=== PATIENT | female | born 2000 | race American Indian/Alaskan Native ===

== ENCOUNTER 2021-01-16 19:41 | Emergency (ER) | payer OTHER ==
[2021-01-16 20:06] VITALS: BP 123/81
--- NOTE | 2021-01-16 20:09 | Event Note ---
ED Screening Note Date of service: 01/16/21 Time: 20:08 ED Screening Note: c/o vag bleeding after getting US at ob office today. She is about 7 weeks preg. This initial assessment/diagnostic orders/clinical plan/treatment(s) is/are subject to change based on patients health status, clinical progression and re- assessment by fellow clinical providers in the ED. Further treatment and workup at subsequent clinical providers discretion. Patient/guardian urged not to elope from the ED as their condition may be serious if not clinically assessed and managed. Initial orders include: CBC, CMP, Qant, rhogam, UA
[2021-01-16 20:45] LABS: Bilirubin,Urine NEG (Negative); Blood,Urine LG (Negative); Color,Urine Red (Yellow); Mucus,Urine 2+ /HPF; Urobilinogen,Urine < 2.0 mg/dL (<2.0)
[2021-01-16 20:46] LABS: Basophils # (Auto) 0.1 K/mm3 (0.0-0.1); Basophils % (Auto) 0.6 % (0.0-1.8); Eosinophils # (Auto) 0.4 K/mm3 (0.0-0.4); Eosinophils % (Auto) 4.4 % (0.0-4.3); Hemoglobin 12.2 gm/dl (10.1-14.3); Lymphocytes # (Auto) 2.5 K/mm3 (1.2-5.4); Lymphocytes % (Auto) 26.2 % (13.4-35.0); Mean Corpuscular HGB Conc 35 % (30-34); Mean Corpuscular Volume 93 fl (79-97); Monocytes # (Auto) 0.6 K/mm3 (0.0-0.8); Monocytes % (Auto) 6.9 % (0.0-7.3); Platelet Count 214 K/mm3 (140-440); Red Blood Count 3.78 M/mm3 (3.65-5.03); Red Cell Distribution Width 12.8 % (13.2-15.2)
[2021-01-16 20:48] LABS: RBC,Urine > 182.0 /HPF (0.0-6.0)
[2021-01-16 21:07] LABS: Alanine Aminotransferase 11 units/L (7-56); Albumin 4.5 g/dL (3.9-5); Blood Urea Nitrogen 7 mg/dL (7-17); Calcium 8.8 mg/dL (8.4-10.2); Hemolysis Index 3
[2021-01-16 21:12] LABS: BUN/Creatinine Ratio 14
[2021-01-16] MEDS ORDERED: ACETAMINOPHEN W/CODEINE 300-30 MG TAB PO ONE (22:08)
--- NOTE | 2021-01-16 22:17 | Emergency Department Report ---
ED Female HPI - General Chief complaint: Vaginal Bleeding Stated complaint: 7WKS PREG/ABD CRAMPING Time Seen by Provider: 01/16/21 20:45 Source: patient Mode of arrival: Ambulatory Limitations: No Limitations - History of Present Illness Initial comments: This is a 20-year-old G1, P0 female followed by [facility] DIP PAINTER who presents to ED today complaining of vaginal bleeding that began this afternoon after she had gotten the ultrasound at [facility] this morning patient states that her appointment was normal she had a normal ultrasound this morning dating her at 6 weeks gestation. Patient states that pelvic cramping began about a few hours to arrival to the ED. Patient denies fever chills nausea vomiting diarrhea, Dizziness lightheadedness MD Complaint: vaginal bleeding - Related Data Previous Rx's Medication Instructions Recorded Last Taken Type Acetaminophen/Codeine [Tylenol 1 tab PO Q6H #10 tab 01/16/21 Unknown Rx /Codeine # 3 tab] Allergies Allergy/AdvReac Type Severity Reaction Status Date / Time No Known Allergies Allergy Unverified 01/16/21 20:42 ED Review of Systems ROS: Stated complaint: 7WKS PREG/ABD CRAMPING Other details as noted in HPI Comment: All other systems reviewed and negative ED Past Medical Hx - Past Medical History Previous Medical History?: No - Surgical History Past Surgical History?: No - Social History Smoking Status: Never Smoker Substance Use Type: None - Medications Home Medications: Home Medications Medication Instructions Recorded Confirmed Last Taken Type Acetaminophen/Codeine [Tylenol 1 tab PO Q6H #10 tab 01/16/21 Unknown Rx /Codeine # 3 tab] ED Physical Exam - General Limitations: No Limitations General appearance: alert, in no apparent distress - Head Head exam: Present: atraumatic, normocephalic - Eye Eye exam: Present: normal appearance - ENT ENT exam: Present: mucous membranes moist - Neck Neck exam: Present: normal inspection - Respiratory Respiratory exam: Present: normal lung sounds bilaterally. Absent: respiratory distress - Cardiovascular Cardiovascular Exam: Present: regular rate, normal rhythm. Absent: systolic murmur, diastolic murmur, rubs, gallop - GI/Abdominal GI/Abdominal exam: Present: soft, normal bowel sounds - Speculum exam: Present: vaginal discharge, vaginal bleeding, tissue (Consistent with content mixed with blood clot.), other. Absent: laceration Bi-manual exam: Present: normal bi-manual exam. Absent: cervical motion tendernes - Extremities Exam Extremities exam: Present: normal inspection - Back Exam Back exam: Present: normal inspection - Neurological Exam Neurological exam: Present: alert, oriented X3 - Psychiatric Psychiatric exam: Present: normal affect, normal mood - Skin Skin exam: Present: warm, dry, intact, normal color. Absent: rash ED Course Vital Signs 01/16/21 20:01 Temperature 98.7 F Pulse Rate 83 Respiratory 18 Rate Blood Pressure 123/81 O2 Sat by Pulse 98 Oximetry ED Medical Decision Making - Lab Data Result diagrams: 01/16/21 20:06 01/16/21 20:06 Laboratory Last Values WBC 9.4 K/mm3 (4.5-11.0) 01/16/21 20: RBC 3.78 M/mm3 (3.65-5.03) 01/16/21 20:06 Hgb 12.2 gm/dl (10.1-14.3) 01/16/21 20:06 Hct 35.0 % (30.3-42.9) 01/16/21 20:06 MCV 93 fl (79-97) 01/16/21 20:06 MCH 32 pg (28-32) 01/16/21 20:06 MCHC 35 % (30-34) H 01/16/21 20:06 RDW 12.8 % (13.2-15.2) L 01/16/21 20:06 Plt Count 214 K/mm3 (140-440) 01/16/21 20:06 Lymph % (Auto) 26.2 % (13.4-35.0) 01/16/21 20:06 [place] % (Auto) 6.9 % (0.0-7.3) 01/16/21 20:06 Eos % (Auto) 4.4 % (0.0-4.3) H 01/16/21 20:06 Baso % (Auto) 0.6 % (0.0-1.8) 01/16/21 20:06 Lymph # (Auto) 2.5 K/mm3 (1.2-5.4) 01/16/21 20:06 [place] # (Auto) 0.6 K/mm3 (0.0-0.8) 01/16/21 20:06 Eos # (Auto) 0.4 K/mm3 (0.0-0.4) 01/16/21 20:06 Baso # (Auto) 0.1 K/mm3 (0.0-0.1) 01/16/21 20:06 Seg Neutrophils % 61.9 % (40.0-70.0) 01/16/21 20:06 Seg Neutrophils # 5.8 K/mm3 (1.8-7.7) 01/16/21 20:06 Sodium 137 mmol/L (137-145) 01/16/21 20:06 Potassium 3.3 mmol/L (3.6-5.0) L 01/16/21 20:06 Chloride 103.8 mmol/L (98-107) 01/16/21 20:06 Carbon Dioxide 24 mmol/L (22-30) 01/16/21 20:06 Anion Gap 13 mmol/L 01/16/21 20:06 BUN 7 mg/dL (7-17) 01/16/21 20:06 Creatinine 0.5 mg/dL (0.6-1.2) L 01/16/21 20:06 Estimated GFR > 60 ml/min 01/16/21 20:06 BUN/Creatinine Ratio 14 % 01/16/21 20:06 Glucose 110 mg/dL (65-100) H 01/16/21 20:06 Calcium 8.8 mg/dL (8.4-10.2) 01/16/21 20:06 Total Bilirubin 0.30 mg/dL (0.1-1.2) 01/16/21 20:06 AST 17 units/L (5-40) 01/16/21 20:06 ALT 11 units/L (7-56) 01/16/21 20:06 Alkaline Phosphatase 33 units/L (35-129) L 01/16/21 20:06 Total Protein 6.8 g/dL (6.3-8.2) 01/16/21 20:06 Albumin 4.5 g/dL (3.9-5) 01/16/21 20:06 Albumin/Globulin Ratio 2.0 % 01/16/21 20:06 HCG, Quant 6413 mIU/mL (0-4) H 01/16/21 20:06 Urine Color Red (Yellow) 01/16/21 Unknown Urine Turbidity Cloudy (Clear) 01/16/21 Unknown Urine pH 5.0 (5.0-7.0) 01/16/21 Unknown Ur Specific [place] 1.020 (1.003-1.030) 01/16/21 Unknown Urine Protein 100 mg/dl mg/dL (Negative) 01/16/21 Unknown Urine Glucose (UA) Neg mg/dL (Negative) 01/16/21 Unknown Urine Ketones 20 mg/dL (Negative) 01/16/21 Unknown Urine Blood Lg (Negative) 01/16/21 Unknown Urine Nitrite Neg (Negative) 01/16/21 Unknown Urine Bilirubin Neg (Negative) 01/16/21 Unknown Urine Urobilinogen < 2.0 mg/dL (<2.0) 01/16/21 Unknown Ur Leukocyte Esterase Neg (Negative) 01/16/21 Unknown Urine WBC (Auto) 29.0 /HPF (0.0-6.0) H 01/16/21 Unknown Urine RBC (Auto) > 182.0 /HPF (0.0-6.0) 01/16/21 Unknown U Epithel Cells (Auto) 10.0 /HPF (0-13.0) 01/16/21 Unknown Urine Mucus 2+ /HPF 01/16/21 Unknown Blood Type A POSITIVE 01/16/21 20:10 Ord Rhogam Gestat Weeks Rh pos WEEKS 01/16/21 20:10 - Medical Decision Making 20-year-old female presents to ED with spontaneous ED course: All labs within normal limits, except for the beta quantitative which looks seems low for presumed gestational age. Discussed with patient to return in 2 days or follow-up with [facility] for quantitative redraw. Vital signs normalized patient is in no acute distress. I discussed with the patient if follow-up with her DIP PAINTER. Patient had ultrasound this morning so ultrasound is not needed at this time. Patient is not having excruciating pelvic pain. I discussed with the patient that he if bleeding worsens or new symptoms develop to return to ED immediately Critical care attestation.: If time is entered above; I have spent that time in minutes in the direct care of this critically ill patient, excluding procedure time. ED Disposition Clinical Impression: Spontaneous Disposition: DC-01 TO HOME OR SELFCARE Is pt being admited?: No Does the pt Need Aspirin: No Condition: Stable Instructions: Miscarriage, [id number] Additional Instructions: Make sure to follow up with the DIP PAINTER at [facility] as discussed. Take all your medications as you've been prescribed. If you have any worsening symptoms or develop new symptoms please return to ED immediately. Prescriptions: Acetaminophen/Codeine [Tylenol /Codeine # 3 tab] 1 tab PO Q6H #10 tab Referrals: JEREMY MOBILE CHALINO VO MD [Primary Care Provider] - 3-5 Days [facility] [Provider Group] - 3-5 Days Forms: Work/School Release Form(ED) Time of Disposition: 22:30
== END 2021-01-16 22:40 | disposition home or self-care (01) ==
LOC: ED 19:41
DX: O03.9 Complete or unspecified spontaneous abortion without complication (principal); Z3A.01 Less than 8 weeks gestation of pregnancy; Z79.899 Other long term (current) drug therapy
CPT/HCPCS: 36415; 80053; 81001; 84702; 85025; 86900; 86901; 87086

== ENCOUNTER 2021-09-17 10:56 | Emergency (ER) | payer OTHER ==
--- NOTE | 2021-09-17 11:26 | Emergency Department Report ---
ED HPI - General Chief complaint: Vaginal Bleeding Stated complaint: 6WK , BROWN DISCHARGE Time Seen by Provider: 09/17/21 11:16 Source: patient Mode of arrival: Ambulatory Limitations: No Limitations - History of Present Illness Initial comments: The patient was evaluated in the emergency department for symptoms described in the history of present illness. He/she was evaluated in the context of the global COVID-19 pandemic, which necessitated consideration that the patient might be at risk for infection with the virus that causes COVID-19. Institutional protocols and algorithms that pertain to the evaluation of patients at risk for COVID-19 are in a state of rapid change based on information released by regulatory bodies including the CDC and federal and state organizations. These policies and algorithms were followed during the patient's care in the emergency department. Please note that these policies, procedures and recommendations changed on a rapid basis. 20-year-old female presents to the emergency room stating she is approximately 6 weeks and has been having brown discharge for the last week. Patient denies any dysuria no urinary frequency urgency. She states that she had lower back cramp. She denies any pain at this time. She states that she is followed by [facility]'s CARBON PASTE MIXER OPERATOR and her first ultrasound is scheduled tomorrow. Patient is 2 para 0 with a history of a miscarriage. She states she had a blood confirmation from back clinic. Complaint: vaginal bleeding Onset/Timin -: week(s) Radiation: suprapubic Severity scale (0 -10): 2 Quality: aching Consistency: intermittent Improves with: none Worsens with: none Associated symptoms: vaginal bleeding (Brown discharge) Vaginal bleeding: light :: Yes Number of weeks : 6 OB History - Current : no complications OB History - Previous Pregnancies: miscarriage Pre-kerline care: followed by OB (First visit tomorrow) - Related Data : 2 Para: 0 (1 miscarriage) Previous Rx's Medication Instructions Recorded Last Taken Type Acetaminophen/Codeine [Tylenol 1 tab PO Q6H #10 tab 01/16/21 Unknown Rx /Codeine # 3 tab] Allergies Allergy/AdvReac Type Severity Reaction Status Date / Time No Known Allergies Allergy Unverified 01/16/21 20:42 ED Review of Systems ROS: Stated complaint: 6WK , BROWN DISCHARGE Other details as noted in HPI Comment: All other systems reviewed and negative ED Past Medical Hx - Past Medical History Previous Medical History?: No - Surgical History Past Surgical History?: Yes Additional Surgical History: wisdom teeth removal - Social History Smoking Status: Never Smoker Substance Use Type: None - Medications Home Medications: Home Medications Medication Instructions Recorded Confirmed Last Taken Type Acetaminophen/Codeine [Tylenol 1 tab PO Q6H #10 tab 01/16/21 Unknown Rx /Codeine # 3 tab] ED Physical Exam - General Limitations: No Limitations General appearance: alert, in no apparent distress - Head Head exam: Present: atraumatic, normocephalic - Eye Eye exam: Present: normal appearance - ENT ENT exam: Present: mucous membranes moist - Neck Neck exam: Present: normal inspection - Respiratory Respiratory exam: Present: normal lung sounds bilaterally. Absent: respiratory distress - Cardiovascular Cardiovascular Exam: Present: regular rate, normal rhythm. Absent: systolic murmur, diastolic murmur, rubs, gallop - GI/Abdominal GI/Abdominal exam: Present: soft, normal bowel sounds - Extremities Exam Extremities exam: Present: normal inspection - Back Exam Back exam: Present: normal inspection - Neurological Exam Neurological exam: Present: alert, oriented X3 - Psychiatric Psychiatric exam: Present: normal affect, normal mood - Skin Skin exam: Present: warm, dry, intact, normal color. Absent: rash ED Course Vital Signs 09/17/21 11:04 Temperature 98.6 F Pulse Rate 77 Respiratory 18 Rate Blood Pressure 116/64 [Right] O2 Sat by Pulse 100 Oximetry ED Medical Decision Making - Lab Data Result diagrams: 09/17/21 11:35 09/17/21 11:35 - Radiology Data Radiology results: report reviewed [address] [address] Ultrasound Report Signed Patient: MARÍA ELENA MALIK MR#: [id number] : 2000 Acct:[id number] Age/Sex: 20 / F ADM Date: 09/17/21 Loc: ED Attending Dr: Ordering Physician: HODA KHAN MD Date of Service: 09/17/21 Procedure(s): US OB transvaginal Accession Number(s): [id number] cc: HODA KHAN MD ULTRASOUND OBSTETRIC REASON FOR EXAM: bleeding TECHNIQUE: Transabdominal and transvaginal ultrasound was performed to evaluate a first trimester . COMPARISON: None available. FINDINGS: FINDINGS: The pole, yolk sac, and gestational sac are normal in appearance. [facility]-rump length: 5 mm. This corresponds with a gestational age of 6 weeks 2 days. heart rate: 125 bpm Perigestational hemorrhage: No evidence of perigestational hemorrhage on the provided images. MATERNAL FINDINGS: The uterus demonstrates otherwise unremarkable sonographic appearance.. The right ovary demonstrates a normal sonographic appearance. The left ovary demonstrates a normal sonographic appearance. Cul-de-sac: There is minimal free fluid in the cul-de-sac, likely physiologic. IMPRESSION: 1. Viable intrauterine . Gestational age is 6 weeks 2 days by ultrasound. Recommend clinical screening and ultrasound follow-up in the second trimester to screen for anomalies. 2. No significant abnormality. 3. Free fluid in the cul-de-sac is likely physiologic. Signer Name: Quang Wang MD Signed: 09/17/2021 12:51 PM Workstation Name: [id number] Transcribed By: MORALES Dictated By: QUANG WANG MD Electronically Authenticated By: QUANG WANG MD Signed Date/Time: 09/17/21 1251 DD/ 1249 TD/TT: - Medical Decision Making 20-year-old female presents to the emergency room stating she is approximately 6 weeks and has been having brown discharge for the last week. Patient denies any dysuria no urinary frequency urgency. She states that she had lower back cramp. She denies any pain at this time. She states that she is followed by [facility]'s CARBON PASTE MIXER OPERATOR and her first ultrasound is scheduled tomorrow. Patient is 2 para 0 with a history of a miscarriage. She states she had a blood confirmation from back clinic. Vaginal bleeding protocol placed. Critical care attestation.: If time is entered above; I have spent that time in minutes in the direct care of this critically ill patient, excluding procedure time. ED Disposition Clinical Impression: Threatened miscarriage in early Qualifiers: Weeks of gestation: less than 8 weeks Qualified Code(s): Z3A.01 - Less than 8 weeks gestation of Disposition: 01 HOME / SELF CARE / HOMELESS Is pt being admited?: No Does the pt Need Aspirin: No Condition: Stable Instructions: Threatened Miscarriage, [id number], First Trimester of , [id number] Additional Instructions: Ultrasound shows you are 6 weeks and 1 day . There is no abnormalities in your urine. ED RhoGam positive which is good. No signs of anemia. Kidney function tests are good. Follow-up with your CARBON PASTE MIXER OPERATOR. Refrain from having sexual intercourse until you follow-up with your OB no foreign objects in the vaginal vault. No heavy exercise and lifting. Tylenol only for pain. Referrals: PRIMARY CARE, [Primary Care Provider] - 3-5 Days Tory Nicolas CARBON PASTE MIXER OPERATOR [Other] - 3-5 Days Time of Disposition: 13:17
--- NOTE | 2021-09-17 11:26 | Event Note ---
Date of service: 09/17/21 Face to Face: For this encounter I have reviewed the PA/STAFFING ACCOUNT MANAGER documentation, treatment plan, medical decision making, and I had face to face time with this patient. Briefly, patient presented secondary to a brown discharge with some bright red blood. She had had some lower abdominal cramping and back cramping as well. The discharge started yesterday after intercourse. She is noticed cis coordinator discoloration when she wipes. Patient is a . She miscarried her first at approximately 6 weeks by dates. She is currently 6 weeks. On exam, patient has no abdominal tenderness. There is no CVA tenderness. She does not appear to be in any distress. Labs and ultrasound will be obtained. RhoGam work-up has been ordered.
[2021-09-17 12:09] LABS: Basophils % (Auto) 0.4 % (0.0-1.8); Eosinophils # (Auto) 0.1 K/mm3 (0.0-0.4); Eosinophils % (Auto) 1.7 % (0.0-4.3); Hematocrit 36.5 % (30.3-42.9); Hemoglobin 12.8 gm/dl (10.1-14.3); Lymphocytes # (Auto) 1.3 K/mm3 (1.2-5.4); Lymphocytes % (Auto) 20.7 % (13.4-35.0); Mean Corpuscular HGB Conc 35 % (30-34); Mean Corpuscular Volume 92 fl (79-97); Monocytes # (Auto) 0.5 K/mm3 (0.0-0.8); Platelet Count 215 K/mm3 (140-440); Red Blood Count 3.96 M/mm3 (3.65-5.03); Red Cell Distribution Width 13.5 % (13.2-15.2)
[2021-09-17 12:35] LABS: Bilirubin,Urine NEG (Negative); Blood,Urine NEG (Negative); Color,Urine Straw (Yellow); Protein,Urine <15 mg/dL mg/dL (Negative); Urobilinogen,Urine < 2.0 mg/dL (<2.0); WBC,Urine < 1.0 /HPF (0.0-6.0)
[2021-09-17 12:40] LABS: Alanine Aminotransferase 19 units/L (7-56); Albumin 4.7 g/dL (3.9-5); Blood Urea Nitrogen 9 mg/dL (7-17); Calcium 8.9 mg/dL (8.4-10.2); Hemolysis Index 0
[2021-09-17 12:47] LABS: BUN/Creatinine Ratio 23
--- NOTE | 2021-09-17 12:55 | Ultrasound Report ---
ULTRASOUND OBSTETRIC REASON FOR EXAM: bleeding TECHNIQUE: Transabdominal and transvaginal ultrasound was performed to evaluate a first trimester pre gnancy. COMPARISON: None available. FINDINGS: FINDINGS: The pole, yolk sac, and gestational sac are normal in appearance. [place]-rump length: 5 mm. This corresponds with a gestational age of 6 weeks 2 days. heart rate: 125 bpm Perigestational hemorrhage: No evidence of perigestational hemorrhage on the provided images. MATERNAL FINDINGS: The uterus demonstrates otherwise unremarkable sonographic appearance.. The right ovary demonstrates a normal sonographic appearance. The left ovary demonstrates a normal sonographic appearance. Cul-de-sac: There is minimal free fluid in the cul-de-sac, likely physiologic. IMPRESSION: 1. Viable intrauterine . Gestational age is 6 weeks 2 days by ultrasound. Recommend clinica l screening and ultrasound follow-up in the second trimester to screen for anomalies. 2. No significant abnormality. 3. Free fluid in the cul-de-sac is likely physiologic. Signer Name: Willis Wang MD Signed: 09/17/2021 12:51 PM Workstation Name: [id number]
[2021-09-17 13:06] LABS: RBC,Urine < 1.0 /HPF (0.0-6.0)
[2021-09-17 13:32] VITALS: BP 113/64
== END 2021-09-17 13:37 | disposition home or self-care (01) ==
LOC: ED 10:56
DX: O20.0 Threatened abortion (principal); Z3A.01 Less than 8 weeks gestation of pregnancy
CPT/HCPCS: 36415; 76801; 76817; 80053; 81001; 84702; 85025; 86900; 86901; 99284

== ENCOUNTER 2022-04-22 17:12 | Outpatient (CLI) | payer OTHER ==
[2022-04-22 17:40] VITALS: BP 117/64
== END 2022-04-22 20:58 | disposition home or self-care (01) ==
LOC: APU 17:12 → TRG 17:12
PROVIDERS: ATTEND Obstetrics & Gynecology
DX: Z34.93 Encounter for supervision of normal pregnancy, unspecified, third trimester (principal); Z3A.37 37 weeks gestation of pregnancy
CPT/HCPCS: 59025; Q0177

== ENCOUNTER 2022-04-23 03:03 | Outpatient (CLI) | payer OTHER ==
[2022-04-23 03:30] VITALS: BP 125/67
[2022-04-23] MEDS ORDERED: LACTATED RINGERS 1,000 ML ONE (03:30)
== END 2022-04-23 04:42 | disposition home or self-care (01) ==
LOC: TRG 03:03 → APU 03:04 → TRG 04:42
PROVIDERS: ATTEND Obstetrics & Gynecology
DX: O46.93 Antepartum hemorrhage, unspecified, third trimester (principal); Z3A.37 37 weeks gestation of pregnancy
CPT/HCPCS: 59025

== ENCOUNTER 2022-04-23 10:33 | Inpatient (IN) | payer OTHER ==
[2022-04-23] MEDS ORDERED: LACTATED RINGERS 1,000 ML ONE (11:11)
[2022-04-23] MEDS ORDERED: LACTATED RINGERS 1,000 ML IV SCH ×2 (11:30→13:00)
[2022-04-23] MEDS ORDERED: BUTORPHANOL 2 MG/1 ML INJ IV PRN ×2 (12:00→12:30)
[2022-04-23] MEDS ORDERED: LIDOCAINE (2%) 20 MG/1 ML VIAL 20 ML MDV INFILTRATI NR (12:03)
[2022-04-23] MEDS ORDERED: miSOPROStol 200 MCG TAB PR PRN (12:03)
[2022-04-23] MEDS ORDERED: METHYLERGONOVINE MALEATE 0.2 MG/ML VIAL IM PRN (12:30)
[2022-04-23] MEDS ORDERED: OXYTOCIN 10 UNIT/1 ML INJ IM PRN (12:30)
[2022-04-23] MEDS ORDERED: ePHEDrine SULFATE 50 MG/1 ML INJ IV PRN (12:30)
[2022-04-23] MEDS ORDERED: ACETAMINOPHEN 325 MG TAB PO PRN (12:30)
[2022-04-23] MEDS ORDERED: CARBOPROST TROMETHAMINE 250 MCG/1 ML INJ IM PRN (12:30)
[2022-04-23] MEDS ORDERED: TERBUTALINE 1 MG/1 ML INJ SUB-Q PRN (12:30)
[2022-04-23 12:38] LABS: Basophils % (Auto) 0.1 % (0.0-1.8); Eosinophils % (Auto) 0.1 % (0.0-4.3); Hematocrit 30.4 % (30.3-42.9); Hemoglobin 10.2 gm/dl (10.1-14.3); Lymphocytes # (Auto) 1.4 K/mm3 (1.2-5.4); Lymphocytes % (Auto) 7.9 % (13.4-35.0); Mean Corpuscular HGB Conc 34 % (30-34); Mean Corpuscular Volume 87 fl (79-97); Monocytes # (Auto) 1.6 K/mm3 (0.0-0.8); Platelet Count 194 K/mm3 (140-440); Red Blood Count 3.51 M/mm3 (3.65-5.03); Red Cell Distribution Width 13.3 % (13.2-15.2)
[2022-04-23] MEDS ORDERED: OXYTOCIN DRIP 30 UNITS/500 ML BAG IV SCH ×2 (13:00→22:22)
[2022-04-23] MEDS ORDERED: LOPERAMIDE 2 MG CAP PO PRN (13:00)
--- NOTE | 2022-04-23 15:50 | History and Physical Report ---
History of Present Illness Date of examination: 04/23/22 Date of admission: 04/23/22 10:34 History of present illness: Patient presents to labor and delivery with complaints of regular contractions overnight. Patient states that it was seen yesterday labor and delivery with cervical exam at 3 cm initial exam by triage nurse patient is now 6 cm. Will admit to labor and delivery for active labor Menstrual History Regularity: regular Menses every: 28 days Duration: 5 LMP: 08/05/2021 LMP reliability: definite LMP character: normal test type: urine test Date: 11/27/2021 BC at conception: none Planned ? no EDC Calculations LMP: 05/12/2022 EDC Confirmation: 05/12/2022 Past History : 2 Elect. Ab: 1 # 1 Delivery date: 01/2021 Delivery type: SAB Past Medical History: Negative Past Surgical History: negative General Comments - FH: Negative for breast, ovarian, colon, uterine, and pancreatic cancers Risk Factors: Smoked Tobacco Use: Never smoker Smokeless Tobacco Use: Never Passive Smoke Exposure: no HIV High Risk Behavior: no Exercise: no Seatbelt Use: 100 % Alcohol Use: no Drug Use: no Past Medical History Anesthesia Complications: negative Anemia: negative Autoimmune Disorder: negative Bleeding Disorder: negative Blood Transfusions: negative Breast Disease: negative Diabetes: negative Heart Disease: negative Hypertension: negative Hepatitis/Liver Disease: negative Kidney Disease/UTI: negative Neurologic/Epilepsy/Migraines: negative Phlebitis/Varicosities: negative Psychiatric: negative Pulmonary Disease/Asthma: negative Thyroid Disease: negative Hospitalizations: negative Surgery (Non-golf club manager): negative GUILHERME Exposure: negative Infertility: negative Uterine Anomaly: negative Uterine Surgery (not C/S): negative Other Gynecologic Problems: negative Family Hx: Negative for breast, ovarian, colon, uterine, and pancreatic cancers Infection History HIV Risk Eval: no Genetic History Congenital Heart Defect: Mom: no Samantha Disease: Mom: no Thalassemia Mom: no Neural Tube Defect Mom: no Down's Syndrome Mom: no Chon-Sachs Mom: no Sickle Cell Disease/Trait Mom: no Hemophilia Mom: no Muscular Dystrophy Mom: no Cystic Fibrosis Mom: no [place] Chorea Mom: no Mental Retardation Mom: no Fragile X Mom: no Other Genetic/Chromosomal Disorder Mom: no Child w/other defect Mom: no Enviromental Exposures Xray Exposure: no Medication, drug, or alcohol use since LMP: no Chemical/Other Exposure: no Exposure to Cat Liter: no Hx of Parvovirus (Fifth Disease): no Current OB Labs Blood Type: A (09/20/2021) Rh Type: positive (09/20/2021) Rh Antibody Screen: negative (09/20/2021) Hgb: 12.1 (09/20/2021) Hct: 36.4 (09/20/2021) Platelets: 230 (09/20/2021) Rubella: immune (09/20/2021) RPR: nonreactive (09/20/2021) Hep B Surface Antigen: negative (09/20/2021) HIV: negative (09/20/2021) 's Physician: not yet Past History Past Medical History: other (SEE HPI) Past Surgical History: other (SEE HPI) MASTER RIGGER History: other (SEE HPI) Family/Genetic History: other (SEE HPI) Social history: full code, other (SEE HPI) - Obstetrical History Expected Date of Delivery: 05/12/22 Actual Gestation: 37 Week(s) 2 Day(s) : 2 Para: 0 Hx # Term Pregnancies: 0 Number of Pregnancies: 0 Spontaneous Abortions: 1 Induced : 0 Number of Living Children: 0 Medications and Allergies Allergies Allergy/AdvReac Type Severity Reaction Status Date / Time No Known Allergies Allergy Unverified 01/16/21 20:42 Home Medications Medication Instructions Recorded Confirmed Last Taken Type Acetaminophen/Codeine [Tylenol 1 tab PO Q6H #10 tab 01/16/21 Unknown Rx /Codeine # 3 tab] Active Meds: Active Medications Acetaminophen (Acetaminophen 325 Mg Tab) 650 mg PO Q4H PRN PRN Reason: Pain, Mild (1-3) Butorphanol Tartrate (Butorphanol 2 Mg/1 Ml Inj) 2 mg IV Q2H PRN PRN Reason: Labor Pain Last Admin: 04/23/22 12:00 Dose: 2 mg Butorphanol Tartrate (Butorphanol 2 Mg/1 Ml Inj) 1 mg IV Q2H PRN PRN Reason: Pain, Moderate(4-6) LABOR PAIN Carboprost Tromethamine (Carboprost Tromethamine 250 Mcg/1 Ml Inj) 250 mcg IM ONCE PRN PRN Reason: Uterine Bleeding Ephedrine Sulfate (Ephedrine Sulfate 50 Mg/1 Ml Inj) 10 mg IV Q2M PRN PRN Reason: Hypotension Lactated Ringer's (Lactated Ringers) 1,000 mls @ 125 mls/hr IV DIRECT EVELYNE Oxytocin/Sodium Chloride (Pitocin/Ns 30 Unit/500ml) 30 units in 500 mls @ 40 mls/hr IV TITR EVELYNE Loperamide HCl (Loperamide 2 Mg Cap) 2 mg PO ONCE PRN PRN Reason: give with Hemabate Methylergonovine Maleate (Methylergonovine Maleate 0.2 Mg/Ml Vial) 0.2 mg IM ONCE PRN PRN Reason: Uterine Bleeding Mineral Oil (Mineral Oil 30 Ml Oral Liqd) 30 ml PO QHS PRN PRN Reason: Constipation Misoprostol (Misoprostol 200 Mcg Tab) 800 mcg HI ONCE PRN PRN Reason: Uterine Bleeding Oxytocin (Oxytocin 10 Unit/1 Ml Inj) 10 unit IM ONCE PRN PRN Reason: Uterine Bleeding Terbutaline Sulfate (Terbutaline 1 Mg/1 Ml Inj) 0.25 mg SUB-Q ONCE PRN PRN Reason: Hyperstimulation/Hypertonicity Review of Systems Constitutional: other (SEE HPI) - Vital Signs Vital signs: Vital Signs Pulse BP Pulse Ox 78 126/74 98 04/23/22 10:56 04/23/22 10:56 04/23/22 10:56 Temp Pulse Resp BP Pulse Ox 98.3 F 87 16 126/69 98 04/23/22 15:27 04/23/22 15:41 04/23/22 12:00 04/23/22 15:01 04/23/22 15:41 - Physical Exam Breasts: Positive: deferred Cardiovascular: Regular rate Lungs: Positive: Normal air movement Abdomen: Positive: normal appearance Genitourinary (Female): Positive: normal external genitalia Vagina: Positive: normal moisture Uterus: Positive: enlarged Anus/Rectum: Positive: normal perianal skin Extremities: Positive: edema - Obstetrical FHR: category 1 Uterine Contraction Monitor Mode: External Uterine Contraction Pattern: Regular Uterine Tone Measurement Phase: Contraction Uterine Contraction Intensity: Strong/Firm Results Result Diagrams: 04/23/22 11:50 Abnormal lab results 04/23/22 Range/Units 11:50 WBC 18.2 H (4.5-11.0) K/mm3 RBC 3.51 L (3.65-5.03) M/mm3 Lymph % (Auto) 7.9 L (13.4-35.0) % [place] % (Auto) 9.0 H (0.0-7.3) % [place] # (Auto) 1.6 H (0.0-0.8) K/mm3 Seg Neutrophils % 82.9 H (40.0-70.0) % Seg Neutrophils # 15.1 H (1.8-7.7) K/mm3 All other labs normal. Assessment and Plan - Patient Problems (1) 37 weeks gestation of Current Visit: Yes Status: Acute (2) Uterine contractions at greater than 20 weeks of gestation Current Visit: Yes Status: Acute (3) Active labor at term Current Visit: Yes Status: Acute Plan to address problem: Will admit to labor and delivery. Patient at present declines epidural will give IV pain medications. We will follow normal labor and delivery protocol
[2022-04-23] MEDS ORDERED: fentaNYL 100 MCG/2 ML INJ IV ONE (18:08)
[2022-04-23] MEDS ORDERED: ONDANSETRON 4 MG/2 ML INJ ONE (18:26)
--- NOTE | 2022-04-23 19:17 | Progress Note ---
Assessment and Plan A: 21 y.o. @ 37.2 wks, active labor. - Patient Problems (1) Active labor at term Current Visit: Yes Status: Acute Plan to address problem: Repositioned to left later position. Continue with augmentation. Anticipate . Subjective - Subjective Date of service: 04/23/22 Principal diagnosis: IUP @ 37.2 wks, active labor Interval history: Pt feeling some vaginal pressure. Patient reports: movement normal, contractions Objective - Vital Signs Vital Signs: Vital Signs - 12hr 04/23/22 04/23/22 04/23/22 10:56 11:01 11:06 Temperature Pulse Rate 82 84 90 Respiratory Rate Blood Pressure 126/74 O2 Sat by Pulse 98 97 99 Oximetry O2 Sat by Pulse Oximetry [ Anterior Bilateral Throughout] 04/23/22 04/23/22 04/23/22 11:11 11:16 11:21 Temperature Pulse Rate 85 78 84 Respiratory Rate Blood Pressure O2 Sat by Pulse 100 100 100 Oximetry O2 Sat by Pulse Oximetry [ Anterior Bilateral Throughout] 04/23/22 04/23/22 04/23/22 11:26 11:31 11:36 Temperature Pulse Rate 87 88 91 H Respiratory Rate Blood Pressure 126/81 O2 Sat by Pulse 98 98 99 Oximetry O2 Sat by Pulse 100 Oximetry [ Anterior Bilateral Throughout] 04/23/22 04/23/22 04/23/22 11:41 11:46 11:51 Temperature Pulse Rate 85 88 86 Respiratory Rate Blood Pressure O2 Sat by Pulse 98 100 100 Oximetry O2 Sat by Pulse Oximetry [ Anterior Bilateral Throughout] 04/23/22 04/23/22 04/23/22 11:56 11:57 12:00 Temperature Pulse Rate 84 77 Respiratory 16 Rate Blood Pressure 122/77 O2 Sat by Pulse 100 Oximetry O2 Sat by Pulse Oximetry [ Anterior Bilateral Throughout] 04/23/22 04/23/22 04/23/22 12:01 12:06 12:11 Temperature Pulse Rate 94 H 91 H 85 Respiratory Rate Blood Pressure O2 Sat by Pulse 100 99 92 Oximetry O2 Sat by Pulse Oximetry [ Anterior Bilateral Throughout] 04/23/22 04/23/22 04/23/22 12:16 12:21 12:26 Temperature Pulse Rate 80 84 84 Respiratory Rate Blood Pressure 103/55 O2 Sat by Pulse 96 97 96 Oximetry O2 Sat by Pulse Oximetry [ Anterior Bilateral Throughout] 04/23/22 04/23/22 04/23/22 12:31 12:36 12:41 Temperature Pulse Rate 86 81 80 Respiratory Rate Blood Pressure O2 Sat by Pulse 97 97 96 Oximetry O2 Sat by Pulse Oximetry [ Anterior Bilateral Throughout] 04/23/22 04/23/22 04/23/22 12:46 12:51 12:56 Temperature Pulse Rate 91 H 84 79 Respiratory Rate Blood Pressure 108/56 O2 Sat by Pulse 97 97 98 Oximetry O2 Sat by Pulse Oximetry [ Anterior Bilateral Throughout] 04/23/22 04/23/22 04/23/22 13:03 13:04 13:08 Temperature Pulse Rate 83 78 76 Respiratory Rate Blood Pressure 123/74 O2 Sat by Pulse 100 99 Oximetry O2 Sat by Pulse Oximetry [ Anterior Bilateral Throughout] 04/23/22 04/23/22 04/23/22 13:13 13:18 13:23 Temperature Pulse Rate 77 74 70 Respiratory Rate Blood Pressure O2 Sat by Pulse 97 97 99 Oximetry O2 Sat by Pulse Oximetry [ Anterior Bilateral Throughout] 04/23/22 04/23/22 04/23/22 13:26 13:28 13:33 Temperature Pulse Rate 78 77 78 Respiratory Rate Blood Pressure 123/78 O2 Sat by Pulse 97 97 Oximetry O2 Sat by Pulse Oximetry [ Anterior Bilateral Throughout] 04/23/22 04/23/22 04/23/22 13:38 13:43 13:48 Temperature Pulse Rate 74 77 77 Respiratory Rate Blood Pressure O2 Sat by Pulse 97 97 97 Oximetry O2 Sat by Pulse Oximetry [ Anterior Bilateral Throughout] 04/23/22 04/23/22 04/23/22 13:53 13:56 13:58 Temperature Pulse Rate 71 76 75 Respiratory Rate Blood Pressure 132/90 O2 Sat by Pulse 100 97 Oximetry O2 Sat by Pulse Oximetry [ Anterior Bilateral Throughout] 04/23/22 04/23/22 04/23/22 14:03 14:08 14:13 Temperature Pulse Rate 72 75 81 Respiratory Rate Blood Pressure O2 Sat by Pulse 97 98 98 Oximetry O2 Sat by Pulse Oximetry [ Anterior Bilateral Throughout] 04/23/22 04/23/22 04/23/22 14:18 14:23 14:26 Temperature Pulse Rate 79 78 83 Respiratory Rate Blood Pressure 112/70 O2 Sat by Pulse 98 98 Oximetry O2 Sat by Pulse Oximetry [ Anterior Bilateral Throughout] 04/23/22 04/23/22 04/23/22 14:28 14:36 14:41 Temperature Pulse Rate 72 78 85 Respiratory Rate Blood Pressure O2 Sat by Pulse 100 100 97 Oximetry O2 Sat by Pulse Oximetry [ Anterior Bilateral Throughout] 04/23/22 04/23/22 04/23/22 14:46 14:51 15:01 Temperature Pulse Rate 91 H 84 80 Respiratory Rate Blood Pressure 126/69 O2 Sat by Pulse 99 100 100 Oximetry O2 Sat by Pulse Oximetry [ Anterior Bilateral Throughout] 04/23/22 04/23/22 04/23/22 15:06 15:11 15:16 Temperature Pulse Rate 73 83 72 Respiratory Rate Blood Pressure O2 Sat by Pulse 98 97 98 Oximetry O2 Sat by Pulse Oximetry [ Anterior Bilateral Throughout] 04/23/22 04/23/22 04/23/22 15:21 15:26 15:27 Temperature 98.3 F Pulse Rate 65 85 Respiratory Rate Blood Pressure O2 Sat by Pulse 97 100 Oximetry O2 Sat by Pulse Oximetry [ Anterior Bilateral Throughout] 04/23/22 04/23/22 04/23/22 15:31 15:36 15:41 Temperature Pulse Rate 86 78 87 Respiratory Rate Blood Pressure O2 Sat by Pulse 98 97 98 Oximetry O2 Sat by Pulse Oximetry [ Anterior Bilateral Throughout] 04/23/22 04/23/22 04/23/22 15:50 15:51 15:56 Temperature Pulse Rate 94 H 80 95 H Respiratory Rate Blood Pressure 124/83 O2 Sat by Pulse 90 100 98 Oximetry O2 Sat by Pulse Oximetry [ Anterior Bilateral Throughout] 04/23/22 04/23/22 04/23/22 16:01 16:06 16:11 Temperature Pulse Rate 114 H 69 83 Respiratory Rate Blood Pressure O2 Sat by Pulse 98 99 100 Oximetry O2 Sat by Pulse Oximetry [ Anterior Bilateral Throughout] 04/23/22 04/23/22 04/23/22 16:16 16:17 16:21 Temperature Pulse Rate 91 H 66 84 Respiratory Rate Blood Pressure O2 Sat by Pulse 98 84 99 Oximetry O2 Sat by Pulse Oximetry [ Anterior Bilateral Throughout] 04/23/22 04/23/22 04/23/22 16:26 16:31 16:36 Temperature Pulse Rate 83 88 78 Respiratory Rate Blood Pressure O2 Sat by Pulse 99 100 99 Oximetry O2 Sat by Pulse Oximetry [ Anterior Bilateral Throughout] 04/23/22 04/23/22 04/23/22 16:41 16:46 16:51 Temperature Pulse Rate 84 90 80 Respiratory Rate Blood Pressure O2 Sat by Pulse 100 98 98 Oximetry O2 Sat by Pulse Oximetry [ Anterior Bilateral Throughout] 04/23/22 04/23/22 04/23/22 16:56 17:00 17:01 Temperature 99.3 F Pulse Rate 72 79 Respiratory 16 Rate Blood Pressure O2 Sat by Pulse 98 99 Oximetry O2 Sat by Pulse Oximetry [ Anterior Bilateral Throughout] 04/23/22 04/23/22 04/23/22 17:06 17:11 17:16 Temperature Pulse Rate 86 79 78 Respiratory Rate Blood Pressure O2 Sat by Pulse 99 99 99 Oximetry O2 Sat by Pulse Oximetry [ Anterior Bilateral Throughout] 04/23/22 04/23/22 04/23/22 17:18 17:21 17:26 Temperature Pulse Rate 75 107 H 98 H Respiratory Rate Blood Pressure O2 Sat by Pulse 84 96 100 Oximetry O2 Sat by Pulse Oximetry [ Anterior Bilateral Throughout] 04/23/22 04/23/22 04/23/22 17:31 17:34 17:36 Temperature Pulse Rate 84 80 86 Respiratory Rate Blood Pressure O2 Sat by Pulse 99 87 99 Oximetry O2 Sat by Pulse Oximetry [ Anterior Bilateral Throughout] 04/23/22 04/23/22 04/23/22 17:41 17:46 17:51 Temperature Pulse Rate 88 90 97 H Respiratory Rate Blood Pressure O2 Sat by Pulse 98 98 99 Oximetry O2 Sat by Pulse Oximetry [ Anterior Bilateral Throughout] 04/23/22 04/23/22 04/23/22 17:56 18:01 18:06 Temperature Pulse Rate 91 H 89 73 Respiratory Rate Blood Pressure O2 Sat by Pulse 99 98 98 Oximetry O2 Sat by Pulse Oximetry [ Anterior Bilateral Throughout] 04/23/22 04/23/22 04/23/22 18:11 18:14 18:16 Temperature Pulse Rate 86 85 88 Respiratory Rate Blood Pressure 121/68 O2 Sat by Pulse 98 91 Oximetry O2 Sat by Pulse Oximetry [ Anterior Bilateral Throughout] 04/23/22 04/23/22 04/23/22 18:21 18:24 18:26 Temperature Pulse Rate 92 H 72 91 H Respiratory Rate Blood Pressure O2 Sat by Pulse 97 94 98 Oximetry O2 Sat by Pulse Oximetry [ Anterior Bilateral Throughout] 06/04/23/22 04/23/22 18:29 18:31 18:36 Temperature Pulse Rate 82 86 Respiratory 18 Rate Blood Pressure O2 Sat by Pulse 99 99 Oximetry O2 Sat by Pulse Oximetry [ Anterior Bilateral Throughout] 04/23/22 04/23/22 04/23/22 18:41 18:46 18:51 Temperature Pulse Rate 77 111 H 85 Respiratory Rate Blood Pressure O2 Sat by Pulse 100 100 100 Oximetry O2 Sat by Pulse Oximetry [ Anterior Bilateral Throughout] 04/23/22 04/23/22 04/23/22 18:56 19:01 19:04 Temperature Pulse Rate 84 79 Respiratory Rate Blood Pressure O2 Sat by Pulse 100 100 Oximetry O2 Sat by Pulse 100 Oximetry [ Anterior Bilateral Throughout] 04/23/22 04/23/22 04/23/22 19:06 19:07 19:11 Temperature Pulse Rate 84 77 84 Respiratory Rate Blood Pressure O2 Sat by Pulse 100 94 100 Oximetry O2 Sat by Pulse Oximetry [ Anterior Bilateral Throughout] - Exam Cardiovascular: Regular rate Lungs: Normal air movement Abdomen: Present: normal appearance Vulva: both: normal Uterus: Present: normal FHR: category 1 Uterine Contraction Monitor Mode: External Cervical Dilatation: 9.5 Cervical Effacement Percentage: 100 station: +2 Uterine Contraction Pattern: Regular Uterine Tone Measurement Phase: Resting Uterine Contraction Intensity: Moderate - Labs Labs: Abnormal Labs 04/23/22 11:50 WBC 18.2 H RBC 3.51 L Lymph % (Auto) 7.9 L [place] % (Auto) 9.0 H [place] # (Auto) 1.6 H Seg Neutrophils % 82.9 H Seg Neutrophils # 15.1 H Laboratory Results - last 24 hr 04/23/22 04/23/22 04/23/22 11:50 11:50 11:50 WBC 18.2 H RBC 3.51 L Hgb 10.2 Hct 30.4 MCV 87 MCH 29 MCHC 34 RDW 13.3 Plt Count 194 Lymph % (Auto) 7.9 L [place] % (Auto) 9.0 H Eos % (Auto) 0.1 Baso % (Auto) 0.1 Lymph # (Auto) 1.4 [place] # (Auto) 1.6 H Eos # (Auto) 0.0 Baso # (Auto) 0.0 Seg Neutrophils % 82.9 H Seg Neutrophils # 15.1 H Syphilis IgG/IgM Ab Nonreactive Blood Type A POSITIVE Antibody Screen Negative
[2022-04-23] MEDS ORDERED: MINERAL OIL 30 ML ORAL LIQD ONE (19:37)
--- NOTE | 2022-04-23 20:24 | Procedure Note ---
OB Delivery Note - Delivery Date of Delivery: 04/23/22 Physician/Ophthalmologist: DARVIN WILSON Estimated blood loss: other (110 ml) - Vaginal Delivery presentation: vertex Delivery position: OA Intrapartum events: none Delivery induction: none Delivery augmentation: pitocin Delivery monitor: external FHT, external uterine Route of delivery: Delivery placenta: spontaneous Delivery cord: nuchal cord, 3 umbilical vessels Episiotomy: none Delivery laceration: other (Bilateral labial and perineum abrasions.) Anesthesia: intravenous (Fentanyl X1, Stadol X1) Delivery comments: of viable male . Infant to mother's abdomen for skin to skin. Cord clamped after cessation of pulse. Cord cut by FOC. Spontaneous delivery of placenta, intact, complete, 3 vessels noted. Perineum and vaginal inspected. Multiple abrasions noted: bilateral labial and perineum abrasions, hemostatic, no repair needed. QBL 110ml. Apgars 8,9. Infant weight 5-13. Infant and mother left in stable condition in care of RN. Sponges and instruments counted X2 with RN and correct X2. - Infant A at 1 minute: 8 at 5 minutes: 9 Gender: Male ("Jf", 5-13)
[2022-04-23] MEDS ORDERED: MINERAL OIL 30 ML ORAL LIQD PO PRN (22:00)
[2022-04-23] MEDS ORDERED: PROMETHAZINE 25 MG TAB PO PRN (22:22)
[2022-04-23] MEDS ORDERED: LANOLIN/ZINC/DIMETHICONE (LANSINOH) 7 GM TP PRN ×2 (22:22)
[2022-04-23] MEDS ORDERED: IBUPROFEN 800 MG TAB PO SCH (22:22)
[2022-04-23] MEDS ORDERED: diphenhydrAMINE 25 MG CAP PO PRN (22:22)
[2022-04-23] MEDS ORDERED: oxyCODONE /ACETAMINOPHEN 5-325MG TAB PO PRN (22:22)
[2022-04-23] MEDS ORDERED: PROMETHAZINE 25 MG RECT SUPP PR PRN (22:22)
[2022-04-23] MEDS ORDERED: BENZOCAINE/MENTHOL 20/0.5% TOP SPRAY 56 GM TP PRN (22:22)
[2022-04-23] MEDS ORDERED: miSOPROStol 100 MCG TAB PR PRN (22:22)
[2022-04-23] MEDS ORDERED: SENNOSIDES/DOCUSATE SODIUM 8.6/50 MG TAB PO SCH (22:22)
[2022-04-23] MEDS ORDERED: MAGNESIUM HYDROXIDE (MOM) ORAL LIQD UDC PO PRN (22:22)
[2022-04-23] MEDS ORDERED: WITCH HAZEL/ GLYCERIN PAD TP PRN (22:22)
[2022-04-23] MEDS ORDERED: ONDANSETRON 4 MG/2 ML INJ IV PRN (22:22)
[2022-04-23] MEDS ORDERED: ACETAMINOPHEN 500 MG TAB PO PRN (22:29)
--- NOTE | 2022-04-24 08:07 | Progress Note ---
Assessment and Plan patient doing well, no complaints. Breast feeding baby with good latch. lochia scant, fundus firm, VSSAF, post delivery H&H to be drawn @ 1416. - Patient Problems (1) (normal spontaneous vaginal delivery) Current Visit: Yes Status: Acute Plan to address problem: Continue pathway anticipate d/c home tomorrow Subjective - Subjective Date of service: 04/24/22 Principal diagnosis: day #1 s/p Patient reports: appetite normal, voiding normally, pain well controlled, ambulating normally, no dizzy ambulation, no nauseated : doing well, nursing well Objective - Vital Signs Latest vital signs: Vital Signs Temp Pulse Resp BP BP Pulse Ox Pulse Ox 04/24/22 05:21 98.4 F 78 20 103/57 97 04/24/22 01:28 98.3 F 67 18 98/57 98 04/23/22 22:25 99.7 F H 96 H 20 110/64 99 99 04/23/22 21:28 93 H 92/55 04/23/22 21:13 106 H 100/60 04/23/22 20:58 106 H 100/61 92 04/23/22 20:44 94 H 99/59 04/23/22 20:43 89 89 04/23/22 20:41 85 98 04/23/22 20:36 95 H 99 04/23/22 20:31 102 H 100 04/23/22 20:26 107 H 100 04/23/22 20:21 102 H 98 04/23/22 20:16 116 H 96 04/23/22 20:13 108 H 115/59 04/23/22 20:11 110 H 99 04/23/22 20:08 107 H 94 04/23/22 20:06 121 H 98 04/23/22 20:01 118 H 98 04/23/22 19:56 163 H 99 04/23/22 19:51 135 H 98 04/23/22 19:46 118 H 99 04/23/22 19:41 116 H 100 04/23/22 19:36 116 H 100 04/23/22 19:31 87 99 04/23/22 19:26 73 98 04/23/22 19:21 70 100 04/23/22 19:18 100 04/23/22 19:16 86 100 04/23/22 19:11 84 100 04/23/22 19:07 77 94 04/23/22 19:06 84 100 04/23/22 19:04 100 04/23/22 19:01 79 100 04/23/22 18:56 84 100 04/23/22 18:51 85 100 04/23/22 18:46 111 H 100 04/23/22 18:41 77 100 04/23/22 18:36 86 99 04/23/22 18:31 82 99 04/23/22 18:29 18 04/23/22 18:26 91 H 98 04/23/22 18:24 72 94 04/23/22 18:21 92 H 97 04/23/22 18:16 88 91 04/23/22 18:14 85 121/68 04/23/22 18:11 86 98 04/23/22 18:06 73 98 04/23/22 18:01 89 98 04/23/22 17:56 91 H 99 04/23/22 17:51 97 H 99 04/23/22 17:46 90 98 04/23/22 17:41 88 98 04/23/22 17:36 86 99 04/23/22 17:34 80 87 04/23/22 17:31 84 99 04/23/22 17:26 98 H 100 04/23/22 17:21 107 H 96 04/23/22 17:18 75 84 04/23/22 17:16 78 99 04/23/22 17:11 79 99 04/23/22 17:06 86 99 04/23/22 17:01 79 99 04/23/22 17:00 99.3 F 16 04/23/22 16:56 72 98 04/23/22 16:51 80 98 04/23/22 16:46 90 98 04/23/22 16:41 84 100 04/23/22 16:36 78 99 04/23/22 16:31 88 100 04/23/22 16:26 83 99 04/23/22 16:21 84 99 04/23/22 16:17 66 84 04/23/22 16:16 91 H 98 04/23/22 16:11 83 100 04/23/22 16:06 69 99 04/23/22 16:01 114 H 98 04/23/22 15:56 95 H 98 04/23/22 15:51 80 124/83 100 06 15:50 94 H 90 04/23/22 15:41 87 98 04/23/22 15:36 78 97 04/23/22 15:31 86 98 04/23/22 15:27 98.3 F 04/23/22 15:26 85 100 04/23/22 15:21 65 97 04/23/22 15:16 72 98 04/23/22 15:11 83 97 04/23/22 15:06 73 98 04/23/22 15:01 80 126/69 100 04/23/22 14:51 84 100 04/23/22 14:46 91 H 99 04/23/22 14:41 85 97 04/23/22 14:36 78 100 04/23/22 14:28 72 100 04/23/22 14:26 83 112/70 04/23/22 14:23 78 98 04/23/22 14:18 79 98 04/23/22 14:13 81 98 04/23/22 14:08 75 98 04/23/22 14:03 72 97 04/23/22 13:58 75 97 04/23/22 13:56 76 132/90 04/23/22 13:53 71 100 04/23/22 13:48 77 97 04/23/22 13:43 77 97 04/23/22 13:38 74 97 04/23/22 13:33 78 97 04/23/22 13:28 77 97 04/23/22 13:26 78 123/78 04/23/22 13:23 70 99 04/23/22 13:18 74 97 04/23/22 13:13 77 97 04/23/22 13:08 76 99 04/23/22 13:04 78 123/74 06 13:03 83 100 04/23/22 12:56 79 108/56 98 04/23/22 12:51 84 97 04/23/22 12:46 91 H 97 04/23/22 12:41 80 96 04/23/22 12:36 81 97 04/23/22 12:31 86 97 04/23/22 12:26 84 103/55 96 04/23/22 12:21 84 97 04/23/22 12:16 80 96 04/23/22 12:11 85 92 04/23/22 12:06 91 H 99 04/23/22 12:01 94 H 100 04/23/22 12:00 16 04/23/22 11:57 77 122/77 04/23/22 11:56 84 100 04/23/22 11:51 86 100 04/23/22 11:46 88 100 04/23/22 11:41 85 98 04/23/22 11:36 91 H 99 100 04/23/22 11:31 88 98 04/23/22 11:26 87 126/81 98 04/23/22 11:21 84 100 04/23/22 11:16 78 100 04/23/22 11:11 85 100 04/23/22 11:06 90 99 04/23/22 11:01 84 97 04/23/22 10:56 82 126/74 98 Intake and Output 04/23/22 04/24/22 04/24/22 23:59 07:59 15:59 Intake Total 495 240 Output Total 900 Balance -405 240 Intake: IV 375 Lactated Ringers 1,000 ml 375 @ 125 mls/hr IV DIRECT [facility] Rx#:[id number] Oral 120 Intake, Free Water 240 Output: Urine 900 Void 900 Other: Total, Intake Amount 120 Total, Output Amount 600 # Voids Void 1 Estimated Blood Loss 110 - Exam Breasts: Present: normal, Cardiovascular: Present: Regular rate Lungs: Present: Clear to auscultation, Normal air movement Abdomen: Present: normal appearance, soft Vulva: both: normal Uterus: Present: normal, firm, fundal height below umbilicus Extremities: Present: normal Deep Tendon Reflex Grade: Normal +2 - Labs Labs: Abnormal lab results 04/23/22 Range/Units 11:50 WBC 18.2 H (4.5-11.0) K/mm3 RBC 3.51 L (3.65-5.03) M/mm3 Lymph % (Auto) 7.9 L (13.4-35.0) % [place] % (Auto) 9.0 H (0.0-7.3) % [place] # (Auto) 1.6 H (0.0-0.8) K/mm3 Seg Neutrophils % 82.9 H (40.0-70.0) % Seg Neutrophils # 15.1 H (1.8-7.7) K/mm3
[2022-04-24 08:57] LABS: Hemoglobin 9.5 gm/dl (10.1-14.3)
[2022-04-24] MEDS: PRENATAL VIT27-FE FUMARATE-FOLIC ACID VIT TAB PO SCH (10:04)
[2022-04-24] MEDS: DOCUSATE SODIUM 100 MG CAP PO SCH ×2 (10:04→22:01)
[2022-04-24] MEDS: IBUPROFEN ORAL LIQD 100 MG/5 ML ORAL.LIQD PO SCH (11:57)
[2022-04-25] MEDS: IBUPROFEN ORAL LIQD 100 MG/5 ML ORAL.LIQD PO SCH ×2 (03:33→05:28)
[2022-04-25] MEDS ORDERED: TETANUS,DIPH,PERTUSS(ACELL) VACCINE 0.5 ML SYRINGE IM ONE (06:00)
--- NOTE | 2022-04-25 08:30 | Discharge Summary ---
Providers - Providers Date of Admission: 04/23/22 10:34 Date of discharge: 04/25/22 Attending physician: HUGO FIRTZ 04/23/22 22:22 Consult to Senior Manufacturing Supervisor [CONS] Routine Reason For Exam: Primary care physician: HUGO FRITZ Hospitalization Reason for admission: Labor Condition: Good Pertinent studies: post delivery H&H 9.5/28.0, asymptomatic anemia due to acute blood loss Procedures: Hospital course: uncomplicated vaginal and course Disposition: 01 HOME / SELF CARE / HOMELESS Final Discharge Diagnosis (Prints w/discharge instructions): vaginal Time spent for discharge: 20 - Discharge Diagnoses (1) (normal spontaneous vaginal delivery) Status: Acute Core Measure Documentation - Palliative Care Palliative Care/ Comfort Measures: Not Applicable - Core Measures Any of the following diagnoses?: none Exam - Constitutional Vitals: Temp Pulse Resp BP Pulse Ox 98.6 F 98 H 20 108/66 97 04/25/22 00:15 04/25/22 00:15 04/25/22 05:28 04/25/22 00:15 04/25/22 00:15 General appearance: Present: no acute distress, well-nourished - EENT Eyes: Present: PERRL ENT: hearing intact, clear oral mucosa - Neck Neck: Present: supple, normal ROM - Respiratory Respiratory effort: normal Respiratory: bilateral: CTA - Cardiovascular Rhythm: regular Heart Sounds: Absent: rub, click - Extremities Extremities: No edema Peripheral Pulses: within normal limits - Abdominal General gastrointestinal: Present: soft, non-tender, non-distended, normal bowel sounds Female genitourinary: Present: normal - Integumentary Integumentary: Present: clear, warm, dry - Musculoskeletal Musculoskeletal: gait normal, strength equal bilaterally - Psychiatric Psychiatric: appropriate mood/affect, intact judgment & insight - Neurologic Neurologic: CNII-XII intact, moves all extremities - Additional findings Additional findings: lochia scant, fundus firm, Plan Activity: no restrictions Diet: regular Follow up with: HUGO FRITZ MD [Primary Care Provider] - 6 Weeks (Congratulations! Please call [phone] to schedule your visit in 6 weeks. Call for any questions or concerns.) Prescriptions: Ibuprofen [Motrin] 800 mg PO Q8HR PRN #20 tablet PRN Reason: Pain, Moderate (4-6)
[2022-04-25] MEDS: PRENATAL VIT27-FE FUMARATE-FOLIC ACID VIT TAB PO SCH (09:59)
[2022-04-25] MEDS: DOCUSATE SODIUM 100 MG CAP PO SCH (09:59)
[2022-04-25 13:48] VITALS: BP 110/66
== END 2022-04-25 14:00 | disposition home or self-care (01) | DRG 775 ==
LOC: TRG 10:33 → APU 10:34 → TRG 13:06 → LD 14:59 → OB 21:58
PROVIDERS: ADMIT Obstetrics & Gynecology; ATTEND Obstetrics & Gynecology
PROC: 10E0XZZ Delivery of Products of Conception, External Approach (ICD-10-PCS; principal; 2022-04-23)
PROC: 3E0234Z Introduction of Serum, Toxoid and Vaccine into Muscle, Percutaneous Approach (ICD-10-PCS; 2022-04-25)
DX: O69.81X0 Labor and delivery complicated by cord around neck, without compression, not applicable or unspecified (principal); Z3A.37 37 weeks gestation of pregnancy; Z37.0 Single live birth; Z20.822 Contact with and (suspected) exposure to COVID-19; Z23 Encounter for immunization; O90.81 Anemia of the puerperium; D62 Acute posthemorrhagic anemia; O71.82 Other specified trauma to perineum and vulva
CPT/HCPCS: 36415; 59025; 85014; 85018; 85025; 86592; 86850; 86900; 86901; 99211; G0378; G0463; J0595; J2405; J2590; J3010; J7120; Q0177; U0003